=== PATIENT | female | born 1945 | race Caucasian/White ===

== ENCOUNTER → 2023-04-02 | Outpatient (CLI) | payer MEDICARE ==
--- NOTE | 2023-04-03 10:09 | USB ---
Reason for Exam: Clinical finding. Patient History: Menarche at age 10. Postmenopausal. Risk Values: Arelis 5 year model risk: 1.2%. NCI Lifetime model risk: 2.0%. Technique: Method: Targeted. Findings: The area of palpable concern of the right breast, the axilla of the right breast and the retroareolar of the right breast were scanned. Right breast ultrasound demonstrates a 3.0 x 3.0 x 2.1cm solid, hypoechoic, vascular lesion at 12 o'clock, 6cm from the nipple. Overall Assessment: Highly suggestive of malignancy, BI-RAD 5 Management: Ultrasound-Guided Core Biopsy of the right breast. A clinical breast exam by your physician is recommended on an annual basis and results should be correlated with mammographic findings. This exam should not preclude additional follow-up of suspicious palpable abnormalities. Results were given to the patient verbally at the time of exam. Electronically signed and approved by: Sy Hickman M.D. Radiologis
--- NOTE | 2023-04-03 10:09 | MM ---
Reason for Exam: Clinical finding. Indicated Problems: Palpable abnormality of the right side for 4 Month(s). Patient History: Menarche at age 10. Postmenopausal. Risk Values: Arelis 5 year model risk: 1.2%. NCI Lifetime model risk: 2.0%. Prior Study Comparison: No prior studies available for comparison. Tissue Density: The breast tissue is heterogeneously dense. This may lower the sensitivity of mammography. Findings: Analyzed By CAD. Only a single right CC was obtained as the patient became combative. Partially imaged mass posterior right breast. Ultrasound recommended. Overall Assessment: Incomplete: need additional imaging evaluation, BI-RAD 0 Management: Diagnostic Breast Ultrasound of the right breast. A clinical breast exam by your physician is recommended on an annual basis and results should be correlated with mammographic findings. This exam should not preclude additional follow-up of suspicious palpable abnormalities. Results were given to the patient verbally at the time of exam. Electronically signed and approved by: Sy Hickman M.D. Radiologis
== END | disposition home or self-care (01) ==
LOC: RADUSWWP 12:24
PROVIDERS: ATTEND General Practice
DX: Z00.01 Encounter for general adult medical examination with abnormal findings (principal); N63.15 Unspecified lump in the right breast, overlapping quadrants; E46 Unspecified protein-calorie malnutrition; Z78.0 Asymptomatic menopausal state; Z74.09 Other reduced mobility
CPT/HCPCS: 77065; 76642; G0279; 77061